=== PATIENT | female | born 1955 | race African-American/Black ===

== ENCOUNTER 2016-09-24 22:30 | Emergency (ER) | payer MEDICAID ==
[~2016-09-24] VITALS: Ht 162.6 cm; Wt 91.0 kg
[~2016-09-24 22:30] MED LIST: LISINOPRIL-HCTZ; METFORMIN; VENTOLIN
[2016-09-24] MEDS ORDERED: MORPHINE SULFATE 4 MG/ML CPJ (NOT FOR IM USE) IV STA (23:51)
[2016-09-24] MEDS ORDERED: ONDANSETRON HCL 4MG/2ML VIAL IV STA (23:51)
[2016-09-24] MEDS ORDERED: ASPIRIN 81MG TABLET PO STA (23:51)
[2016-09-25] MEDS ORDERED: NITROGLYCERIN 0.4MG TABLET SL SL PRN
[2016-09-25 00:07] LABS: BASOPHILS % 0.7 % (0.0-2.0); EOSINOPHILS % 2.8 % (0.0-5.0); HEMATOCRIT. 35.8 % (36.0-48.0); LYMPHOCYTES % 35.4 % (20.0-50.0); MEAN CORPUSCULAR HEMOGLOBIN 30.3 pg (28.0-32.0); MEAN CORPUSCULAR HGB CONC 33.5 g/dL (31.0-37.0); MEAN CORPUSCULAR VOLUME 90.5 fL (81.0-99.0); MONOCYTES % 11.4 % (2.0-8.0); NEUTROPHILS % 49.7 % (40.0-76.0); PLATELET 247 x1000/uL (130-400); RED BLOOD CELL COUNT 3.96 mill/uL (4.2-5.4); RED CELL DISTRIBUTION WIDTH 14.7 % (11.6-14.6); WHITE BLOOD COUNT 7.9 x1000/uL (4.5-11.0)
[2016-09-25 00:15] LABS: INR 1.1; PARTIAL THROMBOPLASTIN TIME 28.9 sec (24.0-34.0); PROTHROMBIN TIME 11.6 sec
[2016-09-25 00:20] LABS: ALANINE AMINOTRANSFERASE 24 IU/L (13-61); ALBUMIN 3.4 g/dL (3.4-5.0); ANION GAP 12; CALCIUM 8.7 mg/dL (8.5-10.1); CARBON DIOXIDE 28 mEq/L (21-32); CHLORIDE 108 mEq/L (98-107); INDEX HEMOLYSI 1 (1-3); INDEX ICTERIC 1 (1-4); INDEX LIPEMIC 1 (1-3); TROPONIN I < 0.02 ng/mL (0.00-0.04); UREA NITROGEN BLOOD 13 mg/dL (7-21); eGFR > 60 mL/min (>60)
[2016-09-25] MEDS ORDERED: IBUPROFEN 800MG TABLET PO ONE (01:15)
[2016-09-25] MEDS ORDERED: ACETAMINOPHEN 325MG TABLET PO ONE (01:30)
[2016-09-25 02:03] VITALS: BP 154/71
== END 2016-09-25 03:51 | disposition home or self-care (01) ==
LOC: ER 22:31
DX: R07.89 Other chest pain (principal); I10 Essential (primary) hypertension; Z88.0 Allergy status to penicillin; Z88.6 Allergy status to analgesic agent; Z79.4 Long term (current) use of insulin; Z79.899 Other long term (current) drug therapy; Z86.73 Personal history of transient ischemic attack (TIA), and cerebral infarction without residual deficits
CPT/HCPCS: 36415; 71010; 80053; 84484; 85025; 85610; 85730; 93005; 96374; 99285; J2270; Z7610; J2405

== ENCOUNTER 2018-02-20 17:44 | Emergency (ER) | payer MEDICAID ==
[~2018-02-20] VITALS: Ht 167.6 cm; Wt 79.0 kg
[2018-02-20] MEDS ORDERED: TRAMADOL 50MG TABLET PO ONE (19:15)
[2018-02-20 20:44] VITALS: BP 156/73
== END 2018-02-20 21:02 | disposition home or self-care (01) ==
LOC: ER 17:44
DX: M54.5 Low back pain (principal); M79.645 Pain in left finger(s); E11.9 Type 2 diabetes mellitus without complications; I10 Essential (primary) hypertension; V43.52XA Car driver injured in collision with other type car in traffic accident, initial encounter; Y93.89 Activity, other specified; Y92.89 Other specified places as the place of occurrence of the external cause; Y99.8 Other external cause status; Z88.0 Allergy status to penicillin; Z88.6 Allergy status to analgesic agent
CPT/HCPCS: 72100; 73130; 99284

== ENCOUNTER 2018-11-25 18:56 | Inpatient (IN) | payer MEDICAID ==
[~2018-11-25] VITALS: Ht 157.5 cm; Wt 85.7 kg
[2018-11-25 19:49] LABS: BASOPHILS % 1.3 % (0.0-2.0); EOSINOPHILS % 0.4 % (0.0-5.0); HEMATOCRIT. 35.3 % (36.0-48.0); HEMOGLOBIN. 11.7 g/dL (12.0-16.0); LYMPHOCYTES % 14.5 % (20.0-50.0); MEAN CORPUSCULAR HEMOGLOBIN 28.2 pg (28.0-32.0); MEAN CORPUSCULAR VOLUME 85.5 fL (81.0-99.0); MEAN PLATELET VOLUME 8.1 fl (7.4-10.4); NEUTROPHILS % 73.8 % (40.0-76.0); PLATELET 457 x1000/uL (130-400); RED BLOOD CELL COUNT 4.13 mill/uL (4.2-5.4); RED CELL DISTRIBUTION WIDTH 16.3 % (11.6-14.6)
[2018-11-25 19:50] LABS: CHLORIDE 106 mEq/L (98-107)
[2018-11-25 19:53] LABS: INR 1.1; PARTIAL THROMBOPLASTIN TIME 27.5 sec (23.4-31.0); PROTHROMBIN TIME 11.7 sec (9.6-11.0)
[2018-11-25 19:54] LABS: ETHANOL BLOOD < 10 mg/dL
[2018-11-25 22:30] LABS: CLARITY URINE CLOUDY (CLEAR); COLOR URINE DARK YELLOW (YELLOW); KETONES URINE 1+ (NEGATIVE); LEUKOCYTE ESTERASE URINE NEGATIVE (NEGATIVE); NITRITE URINE NEGATIVE (NEGATIVE); OCCULT BLOOD URINE 1+ (NEGATIVE); PROTEIN URINE 1+ (NEGATIVE); SPECIFIC GRAVITY URINE 1.049 (1.005-1.030); UROBILINOGEN URINE 0.2 E.U./dL (0.2-1.0)
[2018-11-25] MEDS ORDERED: IOHEXOL-350 100 ML BOTTLE ONE (22:46)
[2018-11-25 23:01] LABS: METHADONE URINE SCREEN NEGATIVE (NEGATIVE)
[2018-11-25 23:02] LABS: *AMPHETAMINES SCREEN URINE NEGATIVE (NEGATIVE); *BARBITURATES SCREEN URINE NEGATIVE (NEGATIVE); *BENZODIAZEPINES SCREEN URINE NEGATIVE (NEGATIVE); *COCAINE SCREEN URINE NEGATIVE (NEGATIVE); CANNABINOID URINE SCREEN NEGATIVE (NEGATIVE); OPIATES URINE SCREEN NEGATIVE (NEGATIVE); PHENCYCLIDINE URINE SCREEN NEGATIVE (NEGATIVE)
[2018-11-25] MEDS ORDERED: SULFAMETHOXAZOLE/TRIMETHOPRIM 400/80MG TAB PO ONE (23:15)
[2018-11-25] MEDS ORDERED: SODIUM CHLORIDE 0.9% 1,000 ML IV ONE (23:20)
[2018-11-26] MEDS ORDERED: DIPHENHYDRAMINE 50MG/ML VIAL IV PRN (02:15)
[2018-11-26] MEDS ORDERED: CLONIDINE 0.1MG TABLET PO PRN (02:15)
[2018-11-26] MEDS ORDERED: MAGNESIUM/ALUMINUM HYDROXIDE/SIMETHICONE 30ML UDC PO PRN (02:15)
[2018-11-26] MEDS ORDERED: HYDROCODONE/ACETAMINOPHEN 5/325MG TABLET PO PRN ×2 (02:15→10:45)
[2018-11-26] MEDS ORDERED: ACETAMINOPHEN 650MG SUPP PR PRN (02:15)
[2018-11-26] MEDS ORDERED: IPRATROPIUM/ALBUTEROL 0.5-3(2.5)MG/3ML NEB INH PRN (02:15)
[2018-11-26] MEDS ORDERED: ONDANSETRON HCL 4MG/2ML INJ IV PRN (02:15)
[2018-11-26] MEDS ORDERED: ACETAMINOPHEN 650MG/20.3ML UDC GT PRN (02:15)
[2018-11-26] MEDS ORDERED: ACETAMINOPHEN 325MG TABLET PO PRN (02:15)
[2018-11-26] MEDS ORDERED: HYDRALAZINE 20MG/ML VIAL IV PRN (02:15)
[2018-11-26] MEDS ORDERED: GUAIFENESIN 200MG/10ML SUGAR FREE UDC PO PRN (02:15)
[2018-11-26] MEDS ORDERED: DOCUSATE SODIUM 100MG CAPSULE PO PRN (02:15)
[2018-11-26 06:41] LABS: CREATINE KINASE 56 IU/L (26-192)
[2018-11-26 06:42] LABS: CREATINE KINASE MB FRACTION 2.2 ng/mL (0.5-3.6)
[2018-11-26 08:00] VITALS: BP_SYST 140; BP_SYST 144; BP_DIAS 68; BP_DIAS 77
[2018-11-26] MEDS: SODIUM CHLORIDE 0.9% 1,000 ML IV SCH ×2 (08:00→18:35)
[2018-11-26] MEDS ORDERED: CHOL100022 PO (08:34)
[2018-11-26] MEDS: ENOXAPARIN 40MG/0.4ML SYR SUBCUT SCH (08:37)
[2018-11-26] MEDS ORDERED: ASPIRIN 81MG EC TABLET PO SCH (09:00)
[2018-11-26] MEDS ORDERED: NA PHOS,M-B/NA PHOS,DI-BA ENEMA 118ML PR PRN (09:00)
[2018-11-26] MEDS: DILTIAZEM HCL 30MG TABLET PO SCH ×4 (09:04→23:39)
[2018-11-26] MEDS: SODIUM CHLORIDE 0.9% INJ 3ML FLUSH IVF SCH ×3 (09:09→21:03)
[2018-11-26] MEDS ORDERED: MORPHINE SULFATE 2 MG/ML CPJ (NOT FOR IM USE) IV PRN (10:45)
[2018-11-26 12:00] VITALS: BP 144/64
[2018-11-26 16:00] VITALS: BP 135/60
[2018-11-26 18:02] LABS: CREATINE KINASE 51 IU/L (26-192)
[2018-11-26 18:03] LABS: CREATINE KINASE MB FRACTION 2.1 ng/mL (0.5-3.6)
[2018-11-26] MEDS: FAMOTIDINE 20MG/2ML VIAL IV SCH ×2 (18:34→21:00)
[2018-11-26 20:00] VITALS: BP 122/64
[2018-11-26] MEDS: METOCLOPRAMIDE HCL 10MG/2ML VIAL IV SCH (23:38)
[2018-11-27] VITALS: BP 132/49
[2018-11-27 04:00] VITALS: BP 132/64
[2018-11-27] MEDS: SODIUM CHLORIDE 0.9% INJ 3ML FLUSH IVF SCH ×3 (05:30→22:55)
[2018-11-27] MEDS: METOCLOPRAMIDE HCL 10MG/2ML VIAL IV SCH ×3 (05:35→17:41)
[2018-11-27] MEDS: DILTIAZEM HCL 30MG TABLET PO SCH ×3 (05:35→18:55)
[2018-11-27] MEDS: SODIUM CHLORIDE 0.9% 1,000 ML IV SCH ×2 (05:56→22:56)
[2018-11-27 08:00] VITALS: BP 144/79
[2018-11-27] MEDS: ENOXAPARIN 40MG/0.4ML SYR SUBCUT SCH (09:00)
[2018-11-27] MEDS: FAMOTIDINE 20MG/2ML VIAL IV SCH ×2 (09:00→21:00)
[2018-11-27 12:00] VITALS: BP 133/79
[2018-11-27 16:00] VITALS: BP 156/74
[2018-11-27 16:49] LABS: BASOPHILS % 0.7 % (0.0-2.0); EOSINOPHILS % 0.9 % (0.0-5.0); HEMOGLOBIN. 11.2 g/dL (12.0-16.0); LYMPHOCYTES % 17.9 % (20.0-50.0); MEAN CORPUSCULAR HEMOGLOBIN 28.4 pg (28.0-32.0); MEAN PLATELET VOLUME 8.3 fl (7.4-10.4); MONOCYTES % 11.8 % (2.0-8.0); NEUTROPHILS % 68.7 % (40.0-76.0); PLATELET 453 x1000/uL (130-400); RED BLOOD CELL COUNT 3.96 mill/uL (4.2-5.4); RED CELL DISTRIBUTION WIDTH 16.6 % (11.6-14.6)
[2018-11-27 16:55] LABS: CHLORIDE 109 mEq/L (98-107)
[2018-11-27 17:02] LABS: LDL CHOLESTEROL 89 mg/dL (5-100)
[2018-11-27 17:03] LABS: HDL CHOLESTEROL 31 mg/dL (40-59)
[2018-11-27 20:00] VITALS: BP 151/74
[2018-11-28] VITALS: BP 122/57
[2018-11-28] MEDS: DILTIAZEM HCL 30MG TABLET PO SCH ×4 (06:00→18:23)
[2018-11-28] MEDS: METOCLOPRAMIDE HCL 10MG/2ML VIAL IV SCH ×4 (06:00→18:00)
[2018-11-28] MEDS: SODIUM CHLORIDE 0.9% INJ 3ML FLUSH IVF SCH ×2 (06:10→18:23)
[2018-11-28 08:00] VITALS: BP 146/67
[2018-11-28] MEDS ORDERED: SODIUM BICARBONATE 4% (2.4MEQ) 5ML VIAL IV ONE (08:23)
[2018-11-28] MEDS ORDERED: LIDOCAINE HCL 1% 20ML VIAL (Pyxis) INJ ONE (08:23)
[2018-11-28] MEDS: ENOXAPARIN 40MG/0.4ML SYR SUBCUT SCH (09:00)
[2018-11-28] MEDS: FAMOTIDINE 20MG/2ML VIAL IV SCH (09:00)
[2018-11-28 12:00] VITALS: BP_SYST 126; BP_SYST 140; BP_DIAS 57; BP_DIAS 91
[2018-11-28 16:00] VITALS: BP 140/81
[2018-11-28 16:07] LABS: BASOPHILS % 0.6 % (0.0-2.0); EOSINOPHILS % 1.1 % (0.0-5.0); HEMATOCRIT. 35.2 % (36.0-48.0); HEMOGLOBIN. 11.2 g/dL (12.0-16.0); LYMPHOCYTES % 15.6 % (20.0-50.0); MEAN CORPUSCULAR HEMOGLOBIN 27.5 pg (28.0-32.0); MEAN CORPUSCULAR VOLUME 86.4 fL (81.0-99.0); MEAN PLATELET VOLUME 8.3 fl (7.4-10.4); MONOCYTES % 12.4 % (2.0-8.0); NEUTROPHILS % 70.3 % (40.0-76.0); PLATELET 445 x1000/uL (130-400); RED BLOOD CELL COUNT 4.08 mill/uL (4.2-5.4); RED CELL DISTRIBUTION WIDTH 16.6 % (11.6-14.6)
[2018-11-28 16:11] LABS: CHLORIDE 110 mEq/L (98-107)
[2018-11-28 18:24] VITALS: BP 140/81
== END 2018-11-28 18:55 | disposition home or self-care (01) ==
LOC: ER 18:56 → EDBEDREQ 21:47 → EDBEDREQTM 21:47 → ENRESERV 11-26 05:59 → 5WST 11-26 06:44
PROVIDERS: ADMIT Family Medicine; ATTEND Family Medicine
PROC: 0W9G3ZZ Drainage of Peritoneal Cavity, Percutaneous Approach (ICD-10-PCS; principal; 2018-11-28)
DX: R18.8 Other ascites (principal); E43 Unspecified severe protein-calorie malnutrition; J90 Pleural effusion, not elsewhere classified; C78.6 Secondary malignant neoplasm of retroperitoneum and peritoneum; C56.9 Malignant neoplasm of unspecified ovary; C78.7 Secondary malignant neoplasm of liver and intrahepatic bile duct; D63.0 Anemia in neoplastic disease; R07.89 Other chest pain; I25.10 Atherosclerotic heart disease of native coronary artery without angina pectoris; C76.2 Malignant neoplasm of abdomen; E11.9 Type 2 diabetes mellitus without complications; I10 Essential (primary) hypertension; R59.1 Generalized enlarged lymph nodes; G89.3 Neoplasm related pain (acute) (chronic); K21.9 Gastro-esophageal reflux disease without esophagitis; R79.89 Other specified abnormal findings of blood chemistry; K66.9 Disorder of peritoneum, unspecified; E66.9 Obesity, unspecified; Z88.0 Allergy status to penicillin; Z88.9 Allergy status to unspecified drugs, medicaments and biological substances; Z68.34 Body mass index [BMI] 34.0-34.9, adult
CPT/HCPCS: 36415; 49083; 71045; 71275; 74177; 80048; 80061; 80305; 80320; 82140; 82550; 82553; 83605; 83880; 84484; 85379; 86304; 93005; 93306; 96360; 99291; J2765; J3490; Q9967; G0480

== ENCOUNTER 2018-12-22 02:00 | Inpatient (IN) | payer MEDICAID ==
[~2018-12-22] VITALS: Ht 165.1 cm; Wt 54.9 kg
[~2018-12-22 02:00] MED LIST changes: +LISI-186 PO; -LISINOPRIL-HCTZ; -METFORMIN; -VENTOLIN
[2018-12-22 03:15] LABS: HEMATOCRIT. 42.2 % (36.0-48.0); MEAN CORPUSCULAR HEMOGLOBIN 28.4 pg (28.0-32.0); MEAN CORPUSCULAR VOLUME 85.8 fL (81.0-99.0); MEAN PLATELET VOLUME 8.2 fl (7.4-10.4); PLATELET 517 x1000/uL (130-400); RED BLOOD CELL COUNT 4.92 mill/uL (4.2-5.4); RED CELL DISTRIBUTION WIDTH 18.4 % (11.6-14.6)
[2018-12-22] MEDS ORDERED: ONDANSETRON HCL 4MG/2ML INJ IV ONE (03:15)
[2018-12-22] MEDS ORDERED: SODIUM CHLORIDE 0.9% 1,000 ML IV ONE (03:15)
[2018-12-22] MEDS ORDERED: MORPHINE SULFATE 4 MG/ML CPJ (NOT FOR IM USE) IV ONE (03:15)
[2018-12-22 03:19] LABS: CHLORIDE 100 mEq/L (98-107)
[2018-12-22 03:59] LABS: PLATELET ESTIMATE NORMAL
[2018-12-22 04:13] LABS: INR 1.1; PARTIAL THROMBOPLASTIN TIME 26.4 sec (23.4-31.0); PROTHROMBIN TIME 11.2 sec (9.6-11.0)
[2018-12-22] MEDS ORDERED: LEVOFLOXACIN 750MG PREMIX 150 ML IV ONE (05:00)
[2018-12-22] MEDS ORDERED: SODIUM POLYSTYRENE SULFONATE 15 G/60 ML BOT PO ONE (06:00)
[2018-12-22] MEDS ORDERED: CLONIDINE 0.1MG TABLET PO PRN (07:45)
[2018-12-22] MEDS ORDERED: ACETAMINOPHEN 325MG TABLET PO PRN (07:45)
[2018-12-22] MEDS ORDERED: DIPHENHYDRAMINE 50MG/ML VIAL IV PRN (07:45)
[2018-12-22] MEDS ORDERED: LEVOFLOXACIN 500MG PREMIX 100 ML IV SCH (07:45)
[2018-12-22] MEDS ORDERED: MAGNESIUM/ALUMINUM HYDROXIDE/SIMETHICONE 30ML UDC PO PRN (07:45)
[2018-12-22 08:00] VITALS: BP 115/60
[2018-12-22 08:06] LABS: PHOSPHORUS 5.8 mg/dL (2.5-4.9)
[2018-12-22 08:30] VITALS: BP 115/60
[2018-12-22 09:00] VITALS: BP 115/60
[2018-12-22] MEDS: CITRIC ACID/SODIUM CITRATE SOLN 30ML UDC PO SCH ×5 (09:00→17:27)
[2018-12-22] MEDS ORDERED: SODIUM BICARBONATE 8.4% 1 MEQ/ML 50ML SYR IV SCH (09:00)
[2018-12-22] MEDS: ENOXAPARIN 40MG/0.4ML SYR SUBCUT SCH (09:00)
[2018-12-22] MEDS ORDERED: DEXTROSE 50% WATER 50ML SYRINGE IV NR (09:45)
[2018-12-22] MEDS ORDERED: INSULIN REGULAR (HUMULIN R) UD 100 UNITS/ML SYR IV NR (11:00)
[2018-12-22 12:00] VITALS: BP 140/76
[2018-12-22] MEDS: SODIUM CHLORIDE 0.9% 1,000 ML IV SCH (14:10)
[2018-12-22] MEDS: MORPHINE SULFATE 2 MG/ML CPJ (NOT FOR IM USE) IV PRN (15:40)
[2018-12-22 16:00] VITALS: BP 116/53
[2018-12-22] MEDS ORDERED: SODIUM POLYSTYRENE SULFONATE 15 G/60 ML BOT PO NR (16:00)
[2018-12-22 17:26] LABS: CHLORIDE 102 mEq/L (98-107)
[2018-12-22] MEDS: ONDANSETRON HCL 4MG/2ML INJ IV PRN (17:38)
[2018-12-22 20:00] VITALS: BP 107/57
[2018-12-23] VITALS: BP 109/59
[2018-12-23 03:50] VITALS: BP 112/57
[2018-12-23] MEDS: MORPHINE SULFATE 2 MG/ML CPJ (NOT FOR IM USE) IV PRN ×4 (03:56→17:45)
[2018-12-23] MEDS: SODIUM CHLORIDE 0.9% 1,000 ML IV SCH (04:03)
[2018-12-23] MEDS: LEVOFLOXACIN 250MG PREMIX 50 ML IV SCH (06:13)
[2018-12-23] MEDS: ONDANSETRON HCL 4MG/2ML INJ IV PRN (06:52)
[2018-12-23] MEDS ORDERED: LIDOCAINE HCL 1% 20ML VIAL (Pyxis) INJ ONE (07:52)
[2018-12-23] MEDS ORDERED: SODIUM BICARBONATE 4% (2.4MEQ) 5ML VIAL IV ONE (07:53)
[2018-12-23 07:55] LABS: HEMATOCRIT. 32.3 % (36.0-48.0); HEMOGLOBIN. 10.5 g/dL (12.0-16.0); MEAN CORPUSCULAR HEMOGLOBIN 27.9 pg (28.0-32.0); MEAN PLATELET VOLUME 8.7 fl (7.4-10.4); PLATELET 420 x1000/uL (130-400); RED BLOOD CELL COUNT 3.76 mill/uL (4.2-5.4); RED CELL DISTRIBUTION WIDTH 18.4 % (11.6-14.6)
[2018-12-23 08:00] VITALS: BP 105/51
[2018-12-23 08:00] LABS: CHLORIDE 102 mEq/L (98-107)
[2018-12-23 08:14] LABS: LDL CHOLESTEROL 109 mg/dL (5-100)
[2018-12-23 08:15] LABS: HDL CHOLESTEROL 35 mg/dL (40-59)
[2018-12-23 12:00] VITALS: BP 90/46
[2018-12-23] MEDS: ENOXAPARIN 40MG/0.4ML SYR SUBCUT SCH (12:40)
[2018-12-23] MEDS: CITRIC ACID/SODIUM CITRATE SOLN 30ML UDC PO SCH ×3 (12:40→19:12)
[2018-12-23] MEDS ORDERED: HYDROCODONE/ACETAMINOPHEN 5/325MG TABLET PO PRN (13:15)
[2018-12-23 16:00] VITALS: BP 110/79
[2018-12-23 20:00] VITALS: BP 137/67
[2018-12-23] MEDS: MORPHINE SULFATE 15MG TABLET SR PO SCH ×3 (21:00→23:14)
[2018-12-23 22:08] LABS: PLATELET ESTIMATE NORMAL
[2018-12-24] VITALS (7 sets, daily range): BP systolic 114–129; BP diastolic 66–84
[2018-12-24] MEDS: IPRATROPIUM/ALBUTEROL 0.5-3(2.5)MG/3ML NEB INH PRN ×2 (03:04→08:23)
[2018-12-24 07:43] LABS: HEMATOCRIT. 34.5 % (36.0-48.0); HEMOGLOBIN. 11.1 g/dL (12.0-16.0); MEAN CORPUSCULAR HEMOGLOBIN 27.8 pg (28.0-32.0); MEAN CORPUSCULAR VOLUME 86.3 fL (81.0-99.0); MEAN PLATELET VOLUME 8.6 fl (7.4-10.4); PLATELET 369 x1000/uL (130-400); RED CELL DISTRIBUTION WIDTH 18.2 % (11.6-14.6)
[2018-12-24] MEDS: LEVOFLOXACIN 250MG PREMIX 50 ML IV SCH (07:49)
[2018-12-24] MEDS: MORPHINE SULFATE 2 MG/ML CPJ (NOT FOR IM USE) IV PRN (08:00)
[2018-12-24] MEDS: SODIUM CHLORIDE 0.9% 1,000 ML IV SCH ×2 (08:04→23:24)
[2018-12-24 08:41] LABS: PHOSPHORUS 6.2 mg/dL (2.5-4.9)
[2018-12-24] MEDS: CITRIC ACID/SODIUM CITRATE SOLN 30ML UDC PO SCH ×3 (11:14→17:00)
[2018-12-24] MEDS: ENOXAPARIN 40MG/0.4ML SYR SUBCUT SCH (11:14)
[2018-12-24] MEDS: MORPHINE SULFATE 15MG TABLET SR PO SCH ×2 (11:15→21:00)
[2018-12-24 12:10] LABS: PLATELET ESTIMATE NORMAL
[2018-12-24] MEDS: IPRATROPIUM/ALBUTEROL 0.5-3(2.5)MG/3ML NEB INH SCH ×3 (12:16→19:46)
[2018-12-24] MEDS ORDERED: SODIUM POLYSTYRENE SULFONATE 15 G/60 ML BOT PO NR (16:00)
[2018-12-25] MEDS: IPRATROPIUM/ALBUTEROL 0.5-3(2.5)MG/3ML NEB INH SCH ×6 (01:05→20:42)
[2018-12-25 04:00] VITALS: BP 101/50
[2018-12-25] MEDS: LEVOFLOXACIN 250MG PREMIX 50 ML IV SCH (05:15)
[2018-12-25 07:27] LABS: HEMATOCRIT. 31.7 % (36.0-48.0); HEMOGLOBIN. 10.5 g/dL (12.0-16.0); MEAN CORPUSCULAR HEMOGLOBIN 28.2 pg (28.0-32.0); MEAN CORPUSCULAR VOLUME 85.6 fL (81.0-99.0); MEAN PLATELET VOLUME 8.5 fl (7.4-10.4); PLATELET 356 x1000/uL (130-400); RED BLOOD CELL COUNT 3.71 mill/uL (4.2-5.4); RED CELL DISTRIBUTION WIDTH 17.9 % (11.6-14.6)
[2018-12-25 08:00] VITALS: BP 114/53
[2018-12-25] MEDS: MORPHINE SULFATE 15MG TABLET SR PO SCH ×2 (09:00→21:00)
[2018-12-25] MEDS: CITRIC ACID/SODIUM CITRATE SOLN 30ML UDC PO SCH ×3 (09:00→17:00)
[2018-12-25 10:17] LABS: PLATELET ESTIMATE NORMAL
[2018-12-25] MEDS: ENOXAPARIN 30MG/0.3ML SYR SUBCUT SCH (10:31)
[2018-12-25 12:00] VITALS: BP 106/77
[2018-12-25] MEDS ORDERED: SODIUM POLYSTYRENE SULFONATE 15 G/60 ML BOT PR NR (13:30)
[2018-12-25] MEDS: SODIUM CHLORIDE 0.9% 1,000 ML IV SCH (15:36)
[2018-12-25 16:00] VITALS: BP 113/53
[2018-12-25 20:04] VITALS: BP 113/56
[2018-12-25] MEDS: ATORVASTATIN CALCIUM 20MG TABLET PO SCH (21:00)
[2018-12-26 00:32] VITALS: BP 121/72
[2018-12-26] MEDS: IPRATROPIUM/ALBUTEROL 0.5-3(2.5)MG/3ML NEB INH SCH ×6 (00:54→20:09)
[2018-12-26 04:00] VITALS: BP 99/41
[2018-12-26] MEDS: LEVOFLOXACIN 250MG PREMIX 50 ML IV SCH (06:00)
[2018-12-26 06:49] LABS: HEMATOCRIT. 34.9 % (36.0-48.0); HEMOGLOBIN. 11.4 g/dL (12.0-16.0); MEAN CORPUSCULAR HEMOGLOBIN 27.9 pg (28.0-32.0); MEAN CORPUSCULAR VOLUME 85.8 fL (81.0-99.0); MEAN PLATELET VOLUME 8.6 fl (7.4-10.4); PLATELET 378 x1000/uL (130-400); RED BLOOD CELL COUNT 4.07 mill/uL (4.2-5.4); RED CELL DISTRIBUTION WIDTH 18.4 % (11.6-14.6)
[2018-12-26 07:06] LABS: PHOSPHORUS 3.7 mg/dL (2.5-4.9)
[2018-12-26 08:00] VITALS: BP 99/49
[2018-12-26] MEDS: ENOXAPARIN 30MG/0.3ML SYR SUBCUT SCH (09:00)
[2018-12-26] MEDS: CITRIC ACID/SODIUM CITRATE SOLN 30ML UDC PO SCH ×3 (09:00→17:00)
[2018-12-26] MEDS: MORPHINE SULFATE 15MG TABLET SR PO SCH ×2 (09:00→20:03)
[2018-12-26] MEDS: SODIUM CHLORIDE 0.9% 1,000 ML IV SCH (11:36)
[2018-12-26 12:00] VITALS: BP 146/79
[2018-12-26 16:00] VITALS: BP 105/55
[2018-12-26 20:00] VITALS: BP 108/67
[2018-12-26] MEDS: ATORVASTATIN CALCIUM 20MG TABLET PO SCH (20:03)
[2018-12-26 23:20] LABS: PLATELET ESTIMATE NORMAL
[2018-12-26] MEDS: MORPHINE SULFATE 2 MG/ML CPJ (NOT FOR IM USE) IV PRN (23:21)
[2018-12-27] VITALS: BP 102/67
[2018-12-27 04:00] VITALS: BP 111/67
[2018-12-27] MEDS: LEVOFLOXACIN 250MG PREMIX 50 ML IV SCH (05:55)
[2018-12-27 07:31] LABS: BASOPHILS % 0.2 % (0.0-2.0); EOSINOPHILS % 0.4 % (0.0-5.0); HEMATOCRIT. 31.4 % (36.0-48.0); HEMOGLOBIN. 10.4 g/dL (12.0-16.0); LYMPHOCYTES % 8.3 % (20.0-50.0); MEAN CORPUSCULAR HEMOGLOBIN 28.4 pg (28.0-32.0); MEAN CORPUSCULAR VOLUME 85.3 fL (81.0-99.0); MEAN PLATELET VOLUME 8.7 fl (7.4-10.4); MONOCYTES % 12.1 % (2.0-8.0); PLATELET 348 x1000/uL (130-400); RED BLOOD CELL COUNT 3.68 mill/uL (4.2-5.4); RED CELL DISTRIBUTION WIDTH 18.3 % (11.6-14.6)
[2018-12-27 08:00] VITALS: BP 112/67
[2018-12-27 08:10] LABS: CHLORIDE 104 mEq/L (98-107)
[2018-12-27] MEDS: IPRATROPIUM/ALBUTEROL 0.5-3(2.5)MG/3ML NEB INH SCH ×4 (08:19→19:41)
[2018-12-27 08:33] LABS: PHOSPHORUS 2.8 mg/dL (2.5-4.9)
[2018-12-27] MEDS: CITRIC ACID/SODIUM CITRATE SOLN 30ML UDC PO SCH ×3 (09:00→17:00)
[2018-12-27] MEDS: MORPHINE SULFATE 15MG TABLET SR PO SCH ×2 (09:00→21:00)
[2018-12-27] MEDS: SODIUM CHLORIDE 0.9% 1,000 ML IV SCH (09:25)
[2018-12-27] MEDS: ENOXAPARIN 40MG/0.4ML SYR SUBCUT SCH (09:28)
[2018-12-27] MEDS: HYDROMORPHONE HCL/PF 2MG/ML CPJ IV PRN ×2 (11:30→21:10)
[2018-12-27 12:00] VITALS: BP 118/71
[2018-12-27 16:00] VITALS: BP 99/61
[2018-12-27 20:00] VITALS: BP 99/52
[2018-12-27] MEDS: ATORVASTATIN CALCIUM 20MG TABLET PO SCH (21:09)
[2018-12-28] VITALS: BP 101/56
[2018-12-28] MEDS: IPRATROPIUM/ALBUTEROL 0.5-3(2.5)MG/3ML NEB INH SCH ×6 (03:53→21:08)
[2018-12-28 04:00] VITALS: BP 105/58
[2018-12-28] MEDS: SODIUM CHLORIDE 0.9% 1,000 ML IV SCH (04:03)
[2018-12-28] MEDS: LEVOFLOXACIN 250MG PREMIX 50 ML IV SCH (05:18)
[2018-12-28 05:36] LABS: BASOPHILS % 0.1 % (0.0-2.0); EOSINOPHILS % 0.2 % (0.0-5.0); HEMOGLOBIN. 10.7 g/dL (12.0-16.0); LYMPHOCYTES % 8.1 % (20.0-50.0); MEAN CORPUSCULAR VOLUME 86.7 fL (81.0-99.0); MEAN PLATELET VOLUME 8.6 fl (7.4-10.4); MONOCYTES % 12.2 % (2.0-8.0); NEUTROPHILS % 79.4 % (40.0-76.0); PLATELET 339 x1000/uL (130-400); RED BLOOD CELL COUNT 3.81 mill/uL (4.2-5.4); RED CELL DISTRIBUTION WIDTH 18.5 % (11.6-14.6)
[2018-12-28 05:53] LABS: CHLORIDE 105 mEq/L (98-107)
[2018-12-28 06:03] LABS: PHOSPHORUS 2.9 mg/dL (2.5-4.9)
[2018-12-28] MEDS: HYDROMORPHONE HCL/PF 2MG/ML CPJ IV PRN ×3 (07:49→21:18)
[2018-12-28 08:00] VITALS: BP 109/60
[2018-12-28] MEDS: CITRIC ACID/SODIUM CITRATE SOLN 30ML UDC PO SCH ×3 (08:50→17:00)
[2018-12-28] MEDS: MORPHINE SULFATE 15MG TABLET SR PO SCH ×2 (08:50→21:00)
[2018-12-28] MEDS: ENOXAPARIN 40MG/0.4ML SYR SUBCUT SCH (08:50)
[2018-12-28 12:00] VITALS: BP 126/68
[2018-12-28 16:00] VITALS: BP 124/72
[2018-12-28 20:00] VITALS: BP 121/50
[2018-12-28] MEDS: ATORVASTATIN CALCIUM 20MG TABLET PO SCH (21:18)
[2018-12-29] VITALS: BP 147/84
[2018-12-29 04:00] VITALS: BP 137/59
[2018-12-29] MEDS: IPRATROPIUM/ALBUTEROL 0.5-3(2.5)MG/3ML NEB INH SCH ×3 (04:00→08:24)
[2018-12-29 07:02] LABS: BASOPHILS % 0.1 % (0.0-2.0); EOSINOPHILS % 0.1 % (0.0-5.0); HEMATOCRIT. 33.4 % (36.0-48.0); HEMOGLOBIN. 10.9 g/dL (12.0-16.0); LYMPHOCYTES % 7.1 % (20.0-50.0); MEAN CORPUSCULAR HEMOGLOBIN 28.3 pg (28.0-32.0); MEAN CORPUSCULAR VOLUME 86.3 fL (81.0-99.0); MEAN PLATELET VOLUME 8.5 fl (7.4-10.4); MONOCYTES % 11.1 % (2.0-8.0); NEUTROPHILS % 81.6 % (40.0-76.0); PLATELET 342 x1000/uL (130-400); RED BLOOD CELL COUNT 3.86 mill/uL (4.2-5.4); RED CELL DISTRIBUTION WIDTH 18.6 % (11.6-14.6)
[2018-12-29 07:23] LABS: PHOSPHORUS 4.1 mg/dL (2.5-4.9)
[2018-12-29] MEDS: HYDROMORPHONE HCL/PF 2MG/ML CPJ IV PRN ×2 (07:38→13:43)
[2018-12-29 08:00] VITALS: BP 148/50
[2018-12-29] MEDS ORDERED: LIDOCAINE HCL 1% 20ML VIAL (Pyxis) INJ ONE (08:58)
[2018-12-29] MEDS ORDERED: SODIUM BICARBONATE 4% (2.4MEQ) 5ML VIAL IV ONE (08:58)
[2018-12-29] MEDS: CITRIC ACID/SODIUM CITRATE SOLN 30ML UDC PO SCH ×2 (09:00→12:40)
[2018-12-29] MEDS: ENOXAPARIN 40MG/0.4ML SYR SUBCUT SCH (09:00)
[2018-12-29] MEDS ORDERED: SODIUM CHLORIDE 0.9% 1,000 ML IV SCH (11:00)
[2018-12-29 11:56] VITALS: BP 123/69
[2018-12-29] MEDS ORDERED: ALBUMIN HUMAN 25GM/100ML (25%) IV SCH (12:00)
[2018-12-29 13:52] VITALS: BP 123/69
[2018-12-30] MEDS ORDERED: ENOXAPARIN 30MG/0.3ML SYR SUBCUT SCH (09:00)
== END 2018-12-29 14:30 | DRG 720 ==
LOC: ER 02:00 → 8WST 06:02 → ENRESERV 07:28
PROVIDERS: ADMIT Internal Medicine; ATTEND Internal Medicine
PROC: 0W993ZZ Drainage of Right Pleural Cavity, Percutaneous Approach (ICD-10-PCS; principal; 2018-12-23)
PROC: 0W9G3ZZ Drainage of Peritoneal Cavity, Percutaneous Approach (ICD-10-PCS; 2018-12-23)
PROC: 0W9G3ZZ Drainage of Peritoneal Cavity, Percutaneous Approach (ICD-10-PCS; 2018-12-29)
DX: A41.9 Sepsis, unspecified organism (principal); J96.00 Acute respiratory failure, unspecified whether with hypoxia or hypercapnia; R18.0 Malignant ascites; E43 Unspecified severe protein-calorie malnutrition; N17.9 Acute kidney failure, unspecified; C78.6 Secondary malignant neoplasm of retroperitoneum and peritoneum; E87.2 Acidosis; C56.9 Malignant neoplasm of unspecified ovary; E66.01 Morbid (severe) obesity due to excess calories; D64.9 Anemia, unspecified; C78.7 Secondary malignant neoplasm of liver and intrahepatic bile duct; E11.22 Type 2 diabetes mellitus with diabetic chronic kidney disease; E87.1 Hypo-osmolality and hyponatremia; J93.9 Pneumothorax, unspecified; N18.9 Chronic kidney disease, unspecified; W18.30XA Fall on same level, unspecified, initial encounter; Z51.5 Encounter for palliative care; E87.5 Hyperkalemia; I50.32 Chronic diastolic (congestive) heart failure; E78.5 Hyperlipidemia, unspecified; I13.0 Hypertensive heart and chronic kidney disease with heart failure and stage 1 through stage 4 chronic kidney disease, or unspecified chronic kidney disease; I25.10 Atherosclerotic heart disease of native coronary artery without angina pectoris; Z85.42 Personal history of malignant neoplasm of other parts of uterus; Z85.43 Personal history of malignant neoplasm of ovary; Z88.6 Allergy status to analgesic agent; Z88.0 Allergy status to penicillin; Z82.49 Family history of ischemic heart disease and other diseases of the circulatory system; Z83.3 Family history of diabetes mellitus; Z68.20 Body mass index [BMI] 20.0-20.9, adult; Y93.89 Activity, other specified; Y92.89 Other specified places as the place of occurrence of the external cause; Y99.8 Other external cause status
CPT/HCPCS: 32555; 36415; 49083; 71045; 74018; 74176; 76700; 76705; 80048; 80061; 82533; 82550; 82553; 82962; 83605; 83735; 83880; 84100; 84443; 84484; 86304; 92610; 93005; 93970; 94640; 96374; 96375; 97116; 97161; 99291; C1893; J1170; J1650; J1815; J1956; J2270; J2405; J3490; J7030; J7620; P9047